=== PATIENT | female | born 2000 | race Two or more races ===

== ENCOUNTER 2020-04-27 02:05 | Emergency (ER) | payer MEDICAID ==
[~2020-04-27] VITALS: Ht 157.5 cm; Wt 97.5 kg
[2020-04-27] MEDS ORDERED: diphenhdrAMINE HCL 50 MG/1 ML VL IM ONE (06:15)
[2020-04-27] MEDS ORDERED: methylPREDNISolone SOD SUCC 125 MG/2 ML VL IM ONE (06:15)
[2020-04-27] MEDS ORDERED: EPINEPHrine HCL 1 MG/1 ML AMP SC ONE (07:45)
[2020-04-27 07:52] VITALS: BP 123/82
== END 2020-04-27 08:12 | disposition home or self-care (01) ==
LOC: ER 02:07
DX: T78.3XXA Angioneurotic edema, initial encounter (principal)
CPT/HCPCS: 96372; 99284; J0171; J1200; J2930